=== PATIENT | male | born 1940 | race African-American/Black ===

== ENCOUNTER 2017-02-11 08:29 | Emergency (ER) | payer MEDICARE, OTHER ==
[~2017-02-11] VITALS: Ht 172.7 cm; Wt 90.0 kg
[~2017-02-11 08:29] MED LIST: AMLO10TA80 PO; ASPI-1159 PO; BIMA2.5D4 EACHEYE; BRIM10DR2 BOTHEYE; CLON0.1T PO; CLOP75TA16 PO; DOCU-150 PO; INSU3INS6 SUBCUT; LEVO250T2 PO; TRU10 EACHEYE
[2017-02-11 11:23] VITALS: BP 138/72
== END 2017-02-11 11:27 | disposition home or self-care (01) ==
LOC: ER 08:35
DX: H40.9 Unspecified glaucoma (principal); H53.2 Diplopia; E11.9 Type 2 diabetes mellitus without complications; I10 Essential (primary) hypertension; Z79.4 Long term (current) use of insulin; Z79.82 Long term (current) use of aspirin; R56.9 Unspecified convulsions
CPT/HCPCS: 82962; 99283